=== PATIENT | male | born 1955 | race Caucasian/White ===

== ENCOUNTER 2018-09-21 12:03 | Outpatient (CLI) | payer OTHER ==
[2018-09-21 13:49] LABS: ALT (SGPT) 43 U/L (8-55); AST (SGOT) 31 U/L (5-34); Albumin 4.3 g/dL (3.4-4.8); Alkaline Phosphatase 71 U/L (40-150); Anion Gap 14 mmol/L (10-20); BUN (Urea Nitrogen) 17 mg/dL (8.4-25.7); Bilirubin, Direct 0.2 mg/dL (0.1-0.3); Bilirubin, Total 0.4 mg/dL (0.2-1.2); Calc. Creatinine Clearance 0 mL/min (70-130); Calcium 10.1 mg/dL (7.8-10.44); Carbon Dioxide 25 mmol/L (23-31); Chloride 106 mmol/L (98-107); Estimated GFR-MDRD 77; Globulin 2.9 g/dL (2.4-3.5); Glucose 92 mg/dL (80-115); Potassium 4.4 mmol/L (3.5-5.1); Protein, Total 7.2 g/dL (5.8-8.1); Sodium 141 mmol/L (136-145)
== END 2018-09-21 12:04 | disposition home or self-care (01) ==
LOC: LABBT 12:03
PROVIDERS: ATTEND Internal Medicine Cardiovascular Disease
DX: Z01.818 Encounter for other preprocedural examination (principal); R07.9 Chest pain, unspecified
CPT/HCPCS: 80053; 80076; 93005; 93010

== ENCOUNTER 2018-09-22 05:47 | Day surgery (SDC) | payer OTHER ==
[2018-09-21 12:22] VITALS: BMI 38.3
[2018-09-22 07:01] LABS: Cardiac Risk 4.1 (Less than 4.5)
[2018-09-22] MEDS ORDERED: Midazolam HCl 2 mg/2 ml Vial ONE (08:23)
[2018-09-22] MEDS ORDERED: Aspirin Chewable 81 MG TAB ONE (08:46)
[2018-09-22] MEDS ORDERED: Heparin 10,000 UNITS/1 ML VIAL ONE (08:49)
[2018-09-22] MEDS ORDERED: Fentanyl 100 MCG/2 ML VIAL ONE (08:49)
[2018-09-22] MEDS ORDERED: Iopamidol 370 76% 50 ML VIAL FS ONE (10:32)
[2018-09-22] MEDS ORDERED: Iopamidol 370 76% 100 ML VIAL ONE (10:32)
== END 2018-09-22 15:23 | disposition home or self-care (01) ==
LOC: CCL 05:47
PROVIDERS: ATTEND Internal Medicine Cardiovascular Disease
PROC: 4A023N7 Measurement of Cardiac Sampling and Pressure, Left Heart, Percutaneous Approach (ICD-10-PCS; principal; 2018-09-22)
PROC: 027034Z Dilation of Coronary Artery, One Artery with Drug-eluting Intraluminal Device, Percutaneous Approach (ICD-10-PCS; principal; 2018-09-22)
PROC: B2111ZZ Fluoroscopy of Multiple Coronary Arteries using Low Osmolar Contrast (ICD-10-PCS; principal; 2018-09-22)
DX: I25.10 Atherosclerotic heart disease of native coronary artery without angina pectoris (principal); I10 Essential (primary) hypertension; E66.2 Morbid (severe) obesity with alveolar hypoventilation; Z68.38 Body mass index [BMI] 38.0-38.9, adult; Z87.891 Personal history of nicotine dependence; Z79.899 Other long term (current) drug therapy
CPT/HCPCS: 36415; 80061; 85347; 92928; 93005; 93010; 93458; 93798; 99152; 99153; C1769; C1874; C9600; J1644; J2250; J3010; Q9967